=== PATIENT | female | born 1975 | race Caucasian/White ===

== ENCOUNTER → 2019-11-26 | Outpatient (CLI) | payer OTHER ==
--- NOTE | 2019-11-26 14:51 | XR ---
EXAMINATION TYPE: XR knee complete LT DATE OF EXAM: 11/26/2019 COMPARISON: NONE HISTORY: Pain TECHNIQUE: Three views are submitted. FINDINGS: Hypertrophic spurring and mild narrowing of the joint space. Small amount of fluid in the suprapatell ar bursa.. Osseous structures are intact. No acute fracture seen. IMPRESSION: 1. No acute fracture or dislocation. 2. Small suprapatellar bursal fluid collection. 3. Arthropathy.
--- NOTE | 2019-11-27 07:14 | ECHOF ---
Referral Reason:R00.2 Palpitations, R06.00 Shortness of breath MEASUREMENTS -------- HEIGHT: 167.6 cm WEIGHT: 76.7 kg BP: RVIDd: 3.2 cm (< 3.3) IVSd: 1.0 cm (0.6 - 1.1) LVIDd: 4.5 cm (3.9 - 5.3) LVPWd: 1.2 cm (0.6 - 1.1) IVSs: 1.2 cm LVIDs: 3.1 cm LVPWs: 1.5 cm LAESV Index (A-L): 25.66 ml/m Ao Diam: 2.9 cm (2.0 - 3.7) AV Cusp: 2.3 cm (1.5 - 2.6) MV EXCURSION: 15.225 mm (> 18.000) MV EF SLOPE: 112 mm/s (70 - 150) EPSS: 0.3 cm MV E Alexis: 0.74 m/s MV DecT: 194 ms MV A Alexis: 0.64 m/s MV E/A Ratio: 1.15 RAP: 5.00 mmHg RVSP: 28.94 mmHg FINDINGS -------- This was a technically good study. The left ventricular size is normal. Left ventricular wall thickness is normal. Overall left vent ricular systolic function is normal with, an EF between 55 - 60 %. The diastolic filling pattern is normal for the age of the patient 5.01. The right ventricle is mildly enlarged. Normal LA size by volume 22+/-6 ml/m2. The right atrial size is normal. Interatrial and interventricular septum intact. There is no evidence of aortic regurgitation. There is no evidence of aortic stenosis. Mild mitral regurgitation is present. Mild tricuspid regurgitation present. There is no evidence of pulmonary hypertension. The right v entricular systolic pressure, as measured by Doppler, is 28.94mmHg. There is no pulmonic regurgitation present. The aortic root size is normal. Normal inferior vena cava with normal inspiratory collapse consistent with estimated right atrial pre ssure of 5 mmHg. There is no pericardial effusion. CONCLUSIONS -------- 1. This was a technically good study. 2. The left ventricular size is normal. 3. Left ventricular wall thickness is normal. 4. Overall left ventricular systolic function is normal with, an EF between 55 - 60 %. 5. The diastolic filling pattern is normal for the age of the patient 5.01 6. The right ventricle is mildly enlarged. 7. Normal LA size by volume 22+/-6 ml/m2. 8. The right atrial size is normal. 9. Interatrial and interventricular septum intact. 10. There is no evidence of aortic regurgitation. 11. There is no evidence of aortic stenosis. 12. Mild mitral regurgitation is present. 13. Mild tricuspid regurgitation present. 14. There is no evidence of pulmonary hypertension. 15. The right ventricular systolic pressure, as measured by Doppler, is 28.94mmHg. 16. There is no pulmonic regurgitation present. 17. The aortic root size is normal. 18. Normal inferior vena cava with normal inspiratory collapse consistent with estimated right atrial pressure of 5 mmHg. 19. There is no pericardial effusion. SEWING MACHINE OPERATOR FLOORPERSON: Catalina Russell RDCS
== END | disposition home or self-care (01) ==
LOC: RADECHMAIN 10:05
PROVIDERS: ATTEND Family Medicine
DX: I08.1 Rheumatic disorders of both mitral and tricuspid valves (principal); M12.862 Other specific arthropathies, not elsewhere classified, left knee
CPT/HCPCS: 93270; 93306